=== PATIENT | male | born 1965 | race Caucasian/White ===

== ENCOUNTER 2023-04-09 16:36 | Emergency (ER) | payer OTHER, SELFPAY ==
--- NOTE | 2023-04-09 16:55 | ED.LOWEXIN ---
HPI - Extremity Injury (Lower) General Chief Complaint: Extremity Injury, Lower Stated Complaint: left leg smashed it Source: patient and RN notes reviewed History of Present Illness HPI Narrative: 57 yo M presents to urgent care with complaints of a wound to his left lower leg. Pt states he fell around 03/23/23, scraping his left lower leg. Pt states he waited about 1 week before he sought treatment for this but did go and was admitted to [facility] x 5 days. Pt was discharged this past Wednesday. Pt states he wasn't given any wound care instruction and is afraid his wound will get infected. Pt denies any worsening symptoms from his legs and is unsure if it is getting better. Pt presents with chronic wound to left lower leg, pitting edema to BLE, and erythremic RLE. Pt denies any fevers, chills, vomiting, chest pain, or SOB. Related Data Home Medications Medication Instructions Recorded Confirmed albuterol 90 mcg/actuation aerosol 90 mcg inhalation Q4H PRN Dyspnea 04/09/23 04/09/23 inhaler aspirin 325 mg tablet 325 mg PO DAILY 04/09/23 04/09/23 atorvastatin 80 mg tablet 80 mg PO DAILY 04/09/23 04/09/23 dapagliflozin propanediol 10 mg 10 mg PO DAILY 04/09/23 04/09/23 tablet (Farxiga) duloxetine 60 mg capsule,delayed 60 mg PO DAILY 04/09/23 04/09/23 release furosemide 40 mg tablet 40 mg PO DAILY 04/09/23 04/09/23 insulin lispro 100 unit/mL 1 sliding scale dose subcut 04/09/23 04/09/23 subcutaneous pen USEASDIRECTD losartan 50 mg tablet 50 mg PO DAILY 04/09/23 04/09/23 metoprolol succinate 50 mg 50 mg PO DAILY 04/09/23 04/09/23 tablet,extended release 24 hr mometasone-formoterol HFA 100 2 puff inhalation Q12H 04/09/23 04/09/23 mcg-5 mcg/actuation aerosol inhaler (Dulera) Allergies Allergy/AdvReac Type Severity Reaction Status Date / Time No Known Allergies Allergy Verified 04/09/23 17:03 Review of Systems Review of Systems: CONSTITUTIONAL: Denies fever, chills, or sweats. EYES: Denies visual changes, redness, or discharge. ENT: Denies otalgia and sore throat CARDIOVASCULAR: Denies chest pain, palpitations, or edema. RESPIRATORY: Denies cough or dyspnea. GASTROINTESTINAL: Denies abdominal pain, nausea, vomiting, or diarrhea. GENITOURINARY: Denies dysuria or hematuria. SKIN: wound to LLE MUSCULOSKELETAL: Denies back pain, joint pain, or myalgia. NEUROLOGIC: Denies headache, numbness, or weakness. Pertinent positives per HPI. PMFSH Comments At the time of my signature, I reviewed and agree with the nursing past medical, surgical, social, and family history. There is no relevant family history pertinent to the patient complaint. Exam Narrative: GENERAL: This is a well-nourished, well-developed patient, in no apparent distress. HEAD: normocephalic, atraumatic. EYES: Sclera clear/white. Vision is grossly intact. EARS: External ears normal, auditory canals clear and without drainage. Hearing grossly intact. NOSE: External nose normal with no obvious nasal discharge, nares without redness, no rhinorrhea. THROAT: Mucous membranes moist, posterior pharynx clear. NECK: Neck supple, non-tender without lymphadenopathy, masses or thyromegaly. CARDIOVASCULAR: Regular rate and rhythm without murmurs, gallops, or rubs. RESPIRATORY: Clear to auscultation. Breath sounds equal bilaterally. No wheezes, rales, or rhonchi. GASTROINTESTINAL: Abdomen soft, non-tender, nondistended. Bowel sounds are active. No hepato-splenomegaly, or palpable masses. No guarding. SKIN: 4 cm x 7 cm ulcer to left lower ramires with black scab to center. no drainage from wound. mild erythema to LLE. RLE noted to be erythremic. Pt unsure if this is new erythema or not. NEURO: awake, alert, and oriented to person, place and time. There were no obvious focal neurologic abnormalities. EXTREMITIES: 3+ pitting edema to BLE Course Course Level of Care: Express Care Visit Vital Signs Vital signs: reviewed MDM - Extremity Injury ([place]
[2023-04-09 16:58] VITALS: BP 133/80; PULSE 96; RESP 18; TEMP 36.6; O2SAT 98
[2023-04-09 17:08] VITALS: BP 133/80; PULSE 96; RESP 18; TEMP 36.6; O2SAT 98
== END 2023-04-09 17:19 | disposition home or self-care (01) ==
PROVIDERS: Emergency Provider Nurse Practitioner Family; PCP Nurse Practitioner Family
DX: L97.829 Non-pressure chronic ulcer of other part of left lower leg with unspecified severity (principal); L03.115 Cellulitis of right lower limb; E78.00 Pure hypercholesterolemia, unspecified; I10 Essential (primary) hypertension; J44.9 Chronic obstructive pulmonary disease, unspecified; E11.40 Type 2 diabetes mellitus with diabetic neuropathy, unspecified
CPT/HCPCS: 99203; G0463